=== PATIENT | male | born 1990 | race Caucasian/White ===

== ENCOUNTER 2018-09-01 09:13 | Emergency (ER) | payer OTHER ==
[~2018-09-01] VITALS: Ht 182.9 cm; Wt 74.8 kg
[2018-09-01] MEDS ORDERED: AMOXICILLIN 50500 MG PO (09:40)
[2018-09-01] MEDS ORDERED: AMOXICILLI400 MG/5 M PO (12:15)
[2018-09-01] MEDS ORDERED: ZOFRAN ODT4 MG PO (12:15)
[2018-09-01 12:25] VITALS: BP 140/62
== END 2018-09-01 12:25 | disposition home or self-care (01) ==
LOC: ER 09:13
DX: J02.0 Streptococcal pharyngitis (principal); R11.2 Nausea with vomiting, unspecified